=== PATIENT | male | born 1975 | race Caucasian/White ===

== ENCOUNTER 2019-05-18 15:05 | Emergency (ER) | payer OTHER ==
[~2019-05-18] VITALS: Ht 185.4 cm; Wt 111.9 kg
[~2019-05-18 15:05] MED LIST: HYDROCODON-ACE1 EA10 PO; MOTRIN IB200 MG PO
== END 2019-05-18 16:52 | disposition home or self-care (01) ==
LOC: ED 15:05
DX: S46.211A Strain of muscle, fascia and tendon of other parts of biceps, right arm, initial encounter (principal); X50.0XXA Overexertion from strenuous movement or load, initial encounter
CPT/HCPCS: 73060; 99283-25